=== PATIENT | male | born 1980 | race Two or more races ===

== ENCOUNTER 2022-08-01 13:05 | Emergency (ER) | payer OTHER ==
[~2022-08-01] VITALS: Ht 170.2 cm; Wt 72.0 kg
[2022-08-01] MEDS ORDERED: HYDROcodone-ACET 5/325MG TAB PO ONE (13:45)
[2022-08-01 16:30] VITALS: BP 130/71
== END 2022-08-01 18:11 | disposition short-term general hospital (02) ==
LOC: EEVIPCON 13:05 → ER 13:05
DX: S52.501A Unspecified fracture of the lower end of right radius, initial encounter for closed fracture (principal); W06.XXXA Fall from bed, initial encounter; Y93.89 Activity, other specified; Y92.89 Other specified places as the place of occurrence of the external cause; Y99.8 Other external cause status
CPT/HCPCS: 29125; 73110

== ENCOUNTER 2023-02-25 07:15 | Day surgery (SDC) | payer OTHER ==
[~2023-02-25] VITALS: Ht 167.6 cm; Wt 68.0 kg
[2023-02-25 09:25] LABS: Calcium 9.1 mg/dL (8.5-10.1)
[2023-02-25 09:28] LABS: Bilirubin, Total 0.7 mg/dL (0.2-1.0); Total Protein 8.6 g/dL (6.4-8.2)
[2023-02-25 09:31] LABS: Eosinophils # (auto) 0.1 10 ^3/uL (0-0.8); White Blood Cell 3.4 10^3/uL (4.4-10.8)
[2023-02-25 09:33] LABS: Basophils # (auto) 0.1 10 ^3/uL (0-0.2); Basophils % (auto) 3.4 % (0.0-2.0); Eosinophils % (auto) 3.2 % (0.0-7.0); Hematocrit 35.3 % (41.0-53.0); Lymphocytes # (auto) 1.3 10 ^3/uL (0.4-5.4); Lymphocytes % (auto) 39.1 % (10.0-50.0); Mean Corpuscular Hgb Conc. 31.1 g/dL (32.0-36.0); Mean Corpuscular Volume 74.1 fL (80.0-100.0); Monocytes # (auto) 0.2 10 ^3/uL (0-1.3); Monocytes % (auto) 6.3 % (0.0-12.0); Neutrophils # (auto) 1.6 10 ^3/uL (1.6-8.6); Nucleated Red Blood Cells % 0.5 %; Red Blood Cells 4.76 10^6/uL (4.5-5.90); Red Cell Distribution Width 19.2 % (11.8-14.3)
[2023-02-25 09:39] LABS: INR 1.02 (0.9-1.15); Partial Thromboplastin Time 26.4 sec (24.6-33.4)
[2023-02-25] MEDS ORDERED: MORPHINE SULFATE 4 MG/ML SYR/VIAL IV PRN (10:00)
[2023-02-25] MEDS ORDERED: HYDROmorphone HCL 2 MG/ML VL/or syr IV PRN (10:00)
[2023-02-25] MEDS ORDERED: ONDANSETRON HCL 4 MG/2 ML VIAL IV PRN (10:00)
[2023-02-25] MEDS ORDERED: MIDAZOLAM HCL 2MG/2ML 2ml VIAL (1mg/ml) IV PRN (10:00)
[2023-02-25] MEDS ORDERED: LABETALOL HCL 5 MG/ML 4ML SYRINGE IV PRN (10:00)
[2023-02-25] MEDS ORDERED: ePHEDrine SULFATE 50 MG/ML AMP IV PRN (10:00)
[2023-02-25] MEDS ORDERED: fentaNYL CITRATE 100 MCG/2 ML VL ONE (10:07)
[2023-02-25] MEDS ORDERED: MIDAZOLAM HCL 2MG/2ML 2ml VIAL (1mg/ml) ONE (10:07)
[2023-02-25] MEDS ORDERED: MEPERIDINE HCL (25 MG/ML) 1ML VIAL ONE (10:07)
[2023-02-25] MEDS ORDERED: LIDOCAINE VISCOUS 2% 15ML UD ONE (10:17)
[2023-02-25] MEDS ORDERED: DexAMETHasone SOD PHOS 10MG/1ML VIAL INJ ONE (11:28)
[2023-02-25] MEDS ORDERED: PROPOFOL 10 MG/ML 20 ML IV ONE (11:28)
[2023-02-25 12:25] VITALS: BP 129/94
== END 2023-02-25 12:25 | disposition home or self-care (01) ==
LOC: GI 07:15 → EEVIPCON 09:45 → GI 12:25
PROVIDERS: ATTEND Internal Medicine Gastroenterology
DX: K62.5 Hemorrhage of anus and rectum (principal); K21.9 Gastro-esophageal reflux disease without esophagitis; K64.0 First degree hemorrhoids; K29.90 Gastroduodenitis, unspecified, without bleeding; Z20.822 Contact with and (suspected) exposure to COVID-19
CPT/HCPCS: 36415; 43239; 45378; 80053; 85025; 85610; 85730; 87426; 88305; 88312; 88342; J1100; J2175; J2250; J2704; J3010; J7030